=== PATIENT | male | born 1985 | race African-American/Black ===

== ENCOUNTER 2018-01-21 23:29 | Emergency (ER) | payer MEDICAID ==
[~2018-01-21] VITALS: Ht 175.3 cm; Wt 97.0 kg
[2018-01-22] MEDS ORDERED: PREDNISONE 20MG TABLET PO ONE (04:15)
[2018-01-22] MEDS ORDERED: DIPHENHYDRAMINE 25MG CAPSULE PO ONE (04:15)
[2018-01-22 04:59] VITALS: BP 119/83
== END 2018-01-22 05:40 | disposition home or self-care (01) ==
LOC: ER 01-22 00:19
DX: L50.0 Allergic urticaria (principal); F17.200 Nicotine dependence, unspecified, uncomplicated; Z59.0 Homelessness
CPT/HCPCS: 99283; J7512; Q0163

== ENCOUNTER 2018-01-24 08:51 | Emergency (ER) | payer OTHER ==
[~2018-01-24] VITALS: Ht 162.6 cm; Wt 100.0 kg
[2018-01-24] MEDS ORDERED: DEXAMETHASONE 10 MG/ML VIAL IM ONE (10:30)
[2018-01-24] MEDS ORDERED: FAMOTIDINE 20MG TABLET PO ONE (10:30)
[2018-01-24] MEDS ORDERED: DIPHENHYDRAMINE 25MG CAPSULE PO ONE (10:30)
[2018-01-24 12:59] VITALS: BP 123/79
== END 2018-01-24 13:02 | disposition home or self-care (01) ==
LOC: ER 08:51
DX: T78.40XA Allergy, unspecified, initial encounter (principal); L50.0 Allergic urticaria; F17.200 Nicotine dependence, unspecified, uncomplicated; F12.10 Cannabis abuse, uncomplicated; X58.XXXA Exposure to other specified factors, initial encounter
CPT/HCPCS: 96372; 99283; J1100; Q0163

== ENCOUNTER 2018-02-19 22:45 | Emergency (ER) | payer OTHER ==
[~2018-02-19] VITALS: Ht 177.8 cm; Wt 100.0 kg
[2018-02-20] MEDS ORDERED: IBUPROFEN 400MG TABLET PO ONE (02:45)
[2018-02-20] MEDS ORDERED: DIPHENHYDRAMINE 50MG CAPSULE PO ONE (02:45)
[2018-02-20] MEDS ORDERED: ACETAMINOPHEN 325MG TABLET PO ONE (02:45)
[2018-02-20] MEDS ORDERED: DEXAMETHASONE 10 MG/ML VIAL IM ONE (02:45)
[2018-02-20 06:03] VITALS: BP 114/71
== END 2018-02-20 06:03 | disposition home or self-care (01) ==
LOC: ER 22:45
DX: S63.641A Sprain of metacarpophalangeal joint of right thumb, initial encounter (principal); L50.9 Urticaria, unspecified; M79.641 Pain in right hand; F17.200 Nicotine dependence, unspecified, uncomplicated; F12.10 Cannabis abuse, uncomplicated; X58.XXXA Exposure to other specified factors, initial encounter; Y93.72 Activity, wrestling; Y92.018 Other place in single-family (private) house as the place of occurrence of the external cause
CPT/HCPCS: 29125; 73130; 96372; 99284; J1100; Z7610; Q0163

== ENCOUNTER 2018-04-05 02:26 | Emergency (ER) | payer OTHER ==
[~2018-04-05] VITALS: Ht 177.8 cm; Wt 91.0 kg
[2018-04-05] MEDS ORDERED: IBUPROFEN 600MG TABLET PO ONE (05:00)
[2018-04-05 05:15] VITALS: BP 148/83
== END 2018-04-05 06:45 | disposition home or self-care (01) ==
LOC: ER 02:26
DX: R05 Cough (principal); M79.641 Pain in right hand; R07.89 Other chest pain; R20.2 Paresthesia of skin; R03.0 Elevated blood-pressure reading, without diagnosis of hypertension
CPT/HCPCS: 29125; 71045; 73130; 93005; 99284

== ENCOUNTER 2022-06-11 07:31 | Emergency (ER) | payer MEDICAID, OTHER ==
[~2022-06-11] VITALS: Ht 177.8 cm; Wt 91.0 kg
[2022-06-11] MEDS ORDERED: IBUPROFEN 400MG TABLET PO ONE (09:45)
[2022-06-11] MEDS ORDERED: ACETAMINOPHEN 325MG TABLET PO ONE (09:45)
[2022-06-11] MEDS ORDERED: ITRA100C MT (10:24)
[2022-06-11] MEDS ORDERED: SULF1TAB48 MT (10:24)
[2022-06-11 10:55] VITALS: BP 127/87
== END 2022-06-11 10:56 | disposition home or self-care (01) ==
LOC: ER 08:07
DX: S40.822A Blister (nonthermal) of left upper arm, initial encounter (principal); S40.821A Blister (nonthermal) of right upper arm, initial encounter; S80.821A Blister (nonthermal), right lower leg, initial encounter; B42.89 Other forms of sporotrichosis; Y93.H2 Activity, gardening and landscaping; Y93.89 Activity, other specified; Y92.9 Unspecified place or not applicable
CPT/HCPCS: 99283

== ENCOUNTER 2022-06-12 07:33 | Emergency (ER) | payer OTHER ==
[~2022-06-12] VITALS: Ht 177.8 cm; Wt 80.0 kg
[~2022-06-12 07:33] MED LIST: ITRA100C MT; SULF1TAB48 MT
[2022-06-12 08:00] VITALS: BP 173/134
== END 2022-06-12 09:48 | disposition left against medical advice (07) ==
LOC: ER 07:38
DX: Z53.21 Procedure and treatment not carried out due to patient leaving prior to being seen by health care provider (principal)

== ENCOUNTER 2024-02-10 23:16 | Emergency (ER) | payer MEDICAID, OTHER ==
[~2024-02-10] VITALS: Ht 177.8 cm; Wt 99.0 kg
[~2024-02-10 23:16] MED LIST changes: -ITRA100C MT; +[UNRECOGNIZED DRUG - CODE] MT
[2024-02-10 23:29] VITALS: TEMP 98; O2SAT 98
[2024-02-11] MEDS ORDERED: AMOX1TAB16 MT (00:14)
[2024-02-11] MEDS ORDERED: OXYM30SP26 BOTHNSTRLS (00:14)
[2024-02-11] MEDS ORDERED: IBUP-2028 MT (00:14)
[2024-02-11] MEDS ORDERED: CETI10CA2 MT (00:14)
[2024-02-11] MEDS: AMOXICILLIN/POTASSIUM CLAVULANATE 875/125MG TAB PO ONE (00:52)
[2024-02-11 00:55] VITALS: BP 154/98; PULSE 91; RESP 18
[2024-02-11] MEDS: KETOROLAC 30MG/ML VIAL IM ONE (00:55)
== END 2024-02-11 00:58 | disposition home or self-care (01) ==
LOC: ER 23:25
DX: J32.9 Chronic sinusitis, unspecified (principal); K04.7 Periapical abscess without sinus; F12.10 Cannabis abuse, uncomplicated
CPT/HCPCS: 99283; 96372; J1885

== ENCOUNTER 2024-12-12 10:13 | Emergency (ER) | payer MEDICAID, OTHER ==
[~2024-12-12] VITALS: Ht 177.8 cm; Wt 97.5 kg
[~2024-12-12 10:13] MED LIST changes: +AMOX1TAB16 MT; +CETI10CA2 MT; +IBUP-2028 MT; +OXYM30SP26 BOTHNSTRLS
[2024-12-12 10:26] VITALS: O2SAT 97
[2024-12-12] MEDS ORDERED: AMOX1TAB16 MT (11:09)
[2024-12-12] MEDS ORDERED: SULF1TAB48 MT (11:09)
[2024-12-12] MEDS ORDERED: HYDR-4001 MT (11:09)
[2024-12-12 11:14] VITALS: BP 131/88; PULSE 100; RESP 16; TEMP 36.7; O2SAT 97
[2024-12-12] MEDS ORDERED: HYDROCODONE/ACETAMINOPHEN 5/325MG TABLET PO ONE (11:15)
[2024-12-12] MEDS ORDERED: AMOXICILLIN/POTASSIUM CLAVULANATE 875/125MG TAB PO ONE (11:15)
[2024-12-12] MEDS ORDERED: SULFAMETHOXAZOLE/TRIMETHOPRIM 800/160MG TABLET PO ONE (11:15)
== END 2024-12-12 11:16 | disposition home or self-care (01) ==
LOC: ER 10:24
DX: M70.31 Other bursitis of elbow, right elbow (principal); F12.90 Cannabis use, unspecified, uncomplicated; I10 Essential (primary) hypertension; Z79.899 Other long term (current) drug therapy
CPT/HCPCS: 73070; 73120; 99284